=== PATIENT | male | born 1975 | race African-American/Black ===

== ENCOUNTER 2021-02-11 10:28 | Emergency (ER) | payer OTHER, SELFPAY ==
[2021-02-11 10:36] VITALS: PULSE 87; RESP 18; TEMP 37.2; O2SAT 99; BMI 28.9
--- NOTE | 2021-02-11 11:25 | ED_ITS ---
HPI - Allergic Reaction General Chief complaint: Allergic Reaction Stated complaint: hives/body aches /dizzy Time Seen by Provider: 02/11/21 11:13 History of Present Illness HPI narrative: Patient is a 45-year-old male who presents with allergic reaction. He states that he has previously had allergic reaction to lisinopril which caused hives he has not been on lisinopril for 1 month. He was placed on hydrochlorothiazide after that. He said he tolerated that well his primary care provider in [place] added another medication last week which he now is reporting hives. [place] is [place] on a boat, and isn't supposed to return home for 2 more weeks. He denies any lip swelling tongue swelling difficulty breathing or swallowing. Complaining of itching mostly on his back and arms. He denies any other new exposures Related Data Previous Rx's Medication Instructions Recorded hydrochlorothiazide 25 mg tablet 25 mg PO DAILY #30 tab 02/11/21 prednisone 20 mg tablet 40 mg PO DAILY #10 tab 02/11/21 Allergies Allergy/AdvReac Type Severity Reaction Status Date / Time lisinopril Allergy Verified 02/11/21 10:40 Review of Systems Review of Systems Narrative: GENERAL: Denies chills, fatigue, malaise, fever, sweats, travel HEENT: Denies sinus pain, ear pain, sore throat, difficulty swallowing, neck pain RESPIRATORY: Denies dyspnea, cough, wheezing, hemoptysis, sputum. CARDIOVASCULAR: Denies chest pain, palpitations, orthopnea, edema GASTROINTESTINAL: Denies nausea, vomiting, abdominal pain, diarrhea, constipation, melena. : Denies dysuria, frequency, incontinence, hematuria, urinary retention, flank pain. MUSCULOSKELETAL: Denies weakness, joint pain, or bony pain SKIN: See HPI NEUROLOGIC: Denies weakness, dizziness, headache, numbness, change in speech, confusion PSYCHIATRIC: No concerning psychosocial issues. 12 point review of systems is negative except for those stated above and HPI Patient History Social History Smoking Status: Current every day smoker Smoking Status: Current every day smoker alcohol intake frequency: 0-2 drinks per day Substance Use Type: does not use Exam Initial Vital Signs Initial Vital Signs: Vital Signs Temperature 98.9 F 02/11/21 10:36 Pulse Rate 87 02/11/21 10:36 Respiratory Rate 18 02/11/21 10:36 Pulse Oximetry 99 02/11/21 10:36 GENERAL: Alert 45-year-old male appears well HEENT: Head atraumatic,EOMI, pupils reactive, face symmetric, moist mucous membranes, no lip swelling or tongue swelling CARDIOVASCULAR: Regular rate and rhythm without murmurs, rubs or gallops. RESPIRATORY: Breath sounds equal bilaterally, no wheezes rales or rhonchi. ABDOMEN: Soft, nontender. Normoactive bowel sounds all 4 quadrants. No guarding or rebound. EXTREMITIES: Normal range of motion, no clubbing or edema. Neurovascularly intact NEUROLOGICAL: Alert and oriented x4.Normal gait and speech. SKIN: Mild hives noted on arms and back Course Vital Signs Vital signs: Vital Signs - 8 hr 02/11/21 10:36 Temperature 98.9 F Pulse Rate 87 Respiratory Rate 18 Pulse Oximetry 99 MDM - Allergic Reaction MDM Narrative Medical decision making narrative: Patient does not have any signs or symptoms of angioedema. He has urticaria. Steady previously tolerated hydrochlorothiazide without any problem and he would like to continue that. He lives in [place] and is unable to get back home right now. Discharge Plan Departure Patient Disposition: Home Clinical Impression: Urticaria Instructions: DI for Hives Activity Restrictions/Additional Instructions: *You have been diagnosed with allergic reaction *What to do: At this time stop taking her blood pressure medication that was added. You can trying still take hydrochlorothiazide since you have tolerated previously *Continue to take medications as directed Hydrochlorothiazide 25 mg once a day Prednisone 40 mg once daily for 5 days start today May take Benadryl 25 mg every 6 hours if needed for severe itching recommend taking this at night if needed *Follow up with your primary care provider in 2-3 days *Return to ER if you should have increased difficulty breathing, worsening rash, lip swelling times or any new, worsening or concerning symptoms Prescriptions: New hydrochlorothiazide 25 mg tablet 25 mg PO DAILY Qty: 30 RF: 0 prednisone 20 mg tablet 40 mg PO DAILY Qty: 10 RF: 0
[2021-02-11 11:33] VITALS: BP 101/62; PULSE 73; RESP 16; O2SAT 99
[2021-02-11 12:12] VITALS: BP 101/62; PULSE 73; RESP 16; O2SAT 100
== END 2021-02-11 12:12 | disposition home or self-care (01) ==
PROVIDERS: Emergency Provider Emergency Medicine
DX: L50.9 Urticaria, unspecified (principal)
CPT/HCPCS: 99281